=== PATIENT | female | born 1960 | race Caucasian/White ===

== ENCOUNTER → 2016-12-26 | Outpatient (CLI) | payer OTHER ==
[~2016-12-26] MED LIST: CYAN10004 PO; HYDR-4715 PO; LEVO75TA PO; METO50TA7 PO; MULTTAB58 PO; ONDA8TAB62 PO; OPTIRAY 320 IV PRN; TYL325X PO; ZNTT/150 PO
[2016-12-26 16:02] LABS: BLOOD UREA NITROGEN 19 mg/dl (7-18)
--- NOTE | 2016-12-26 16:45 | DIAGNOSTIC IMAGING REPORT ---
CHEST CT WITH CONTRAST CT DOSE: 2209.15 mGy.cm HISTORY: Colon carcinoma CT TECHNIQUE: Multiaxial CT images of the chest were performed following the intravenous administration of contrast. COMPARISON: 12/30/2015 FINDINGS: Central catheter remains in superior vena cava. No significant hilar or mediastinal adenopathy area in several stable basilar calcified granulomas. Stable left basilar fibrocalcific/postoperative change. No new or interval findings. IMPRESSION: Stable evaluation of the chest. No new or interval findings in the prior exam. Electronically signed by: Ashu Bhandari M.D. 12/26/2016 4:44 PM Dictated Date/Time: 12/26/2016 4:41 PM
--- NOTE | 2016-12-26 16:48 | DIAGNOSTIC IMAGING REPORT ---
CT ABD/PELVIS IV AND ORAL CONT CLINICAL HISTORY: Colon carcinoma COMPARISON STUDY: December 30, 2015 TECHNIQUE: Following the IV administration of 120 mL of Optiray-320, CT scan of the abdomen and pelvis was performed from the lung bases to the proximal femurs. Images are reviewed in the axial, sagittal, and coronal planes. IV contrast was administered without complication. CT DOSE: FINDINGS: Lower chest: There is a calcified granuloma within the right lower lobe. There are bilateral lower lobe postsurgical changes. There is also a calcified granuloma within the left lower lobe. There are calcified hilar lymph nodes. Liver: The contrast-enhanced liver is normal in size, contour, and attenuation. There is no intrahepatic biliary ductal dilatation. The hepatic veins and portal veins are patent. Gallbladder: Cholelithiasis Spleen: There is persistent splenomegaly. The spleen measures 13 cm in length. Pancreas: Unremarkable. Adrenal glands: Unremarkable. Kidneys: There is symmetric renal cortical enhancement. The kidneys are normal in size without hydronephrosis. Bowel: There are no transition zones indicate bowel obstruction. There is no evidence of acute appendicitis. There is no evidence of acute diverticulitis. Peritoneum: There is no intraperitoneal free air or abdominal ascites. There is a fat-containing umbilical hernia. There are stable calcified mesenteric nodules, likely benign Vasculature: The abdominal aorta is normal in course and caliber. Adenopathy: None. Pelvic viscera: The bladder, and pelvic viscera are unremarkable. Skeletal structures: No destructive osseous lesions are seen. IMPRESSION: 1. Stable splenomegaly 2. Cholelithiasis 3. No evidence of hepatic metastasis 4. Stable calcified mesenteric nodules, likely benign Electronically signed by: Jaret Grey M.D. 12/26/2016 4:47 PM Dictated Date/Time: 12/26/2016 4:42 PM
== END | disposition home or self-care (01) ==
LOC: C.CTS 14:31
PROVIDERS: ATTEND Nurse Practitioner
DX: C18.7 Malignant neoplasm of sigmoid colon (principal); R16.1 Splenomegaly, not elsewhere classified; K80.20 Calculus of gallbladder without cholecystitis without obstruction

== ENCOUNTER → 2017-03-15 | Outpatient (CLI) | payer OTHER ==
[~2017-03-15] MED LIST changes: -OPTIRAY 320 IV PRN
--- NOTE | 2017-03-15 14:58 | MAMMOGRAPHY REPORT ---
BILATERAL DIGITAL SCREENING MAMMOGRAM TOMOSYNTHESIS WITH CAD: 03/15/2017 CLINICAL HISTORY: Routine screening. Patient has no complaints. TECHNIQUE: Breast tomosynthesis in addition to standard 2D mammography was performed. Current study was also evaluated with a Computer Aided Detection (CAD) system. COMPARISON: Comparison is made to exams dated: 11/15/2015 mammogram, 10/08/2014 mammogram, 3 mammogram, 03/12/2012 mammogram, 01/15/2011 mammogram - [facility], and 07/23/2008. BREAST COMPOSITION: There are scattered areas of fibroglandular density in both breasts. FINDINGS: No suspicious masses, calcifications, or areas of architectural distortion are noted in e ither breast. There has been no significant interval change compared to prior exams. Scattered bilat eral benign-appearing calcifications are not significantly changed. A port catheter overlies the le ft superior breast. IMPRESSION: ACR BI-RADS CATEGORY 2: BENIGN There is no mammographic evidence of malignancy. A 1 year screening mammogram is recommended. The p atient will receive written notification of the results. Approximately 10% of breast cancers are not detected with mammography. A negative mammographic repor t should not delay biopsy if a clinically suggestive mass is present. Carolyn Vu M.D. /:03/15/2017 12:51:10 Ell Tutor: Jena Martin [facility] letter sent: Normal 1/2 BI-RADS Code: ACR BI-RADS Category 2: Benign
== END ==
LOC: C.MAMM 11:06
PROVIDERS: ATTEND Family Medicine
DX: Z12.31 Encounter for screening mammogram for malignant neoplasm of breast (principal)

== ENCOUNTER → 2017-04-08 | Outpatient (CLI) | payer OTHER ==
[2017-04-08 12:31] LABS: HEMATOCRIT 40.9 % (37-47); MEAN CELL VOLUME 93.4 fL (80-100); MEAN CORPUSCULAR HEMOGLOBIN 30.1 pg (25-34); MEAN CORPUSCULAR HGB CONC 32.3 g/dl (32-36); MEAN PLATELET VOLUME 10.8 fL (7.4-10.4); PLATELET COUNT 93 K/uL (130-400); RED BLOOD COUNT 4.38 M/uL (4.2-5.4); WHITE BLOOD COUNT 5.51 K/uL (4.8-10.8)
[2017-04-08 12:46] LABS: ESTIMATED AVERAGE GLUCOSE 137 mg/dl; HA1C FLAG Normal (Normal)
[2017-04-08 13:16] LABS: URINE APPEARANCE CLOUDY (CLEAR); URINE BILIRUBIN NEG (NEG); URINE COLOR DK YELLOW; URINE EPITHELIAL CELL AUTO >30 /lpf (0-5); URINE NITRITE NEG (NEG); URINE SPECIFIC GRAVITY 1.022 (1.000-1.030); UROBILINOGEN NEG (NEG)
[2017-04-08 13:22] LABS: CHOLESTEROL/HDL RATIO 6.4; THYROID STIMULATING HORMONE 1.58 uIu/ml (0.300-4.500)
[2017-04-08 13:27] LABS: BLOOD UREA NITROGEN 19 mg/dl (7-18); BUN/CREATININE RATIO 12.1 (10-20); CARBON DIOXIDE 26 mmol/L (21-32); CHLORIDE 108 mmol/L (98-107); GLUCOSE 115 mg/dl (70-99); PHOSPHORUS 2.7 mg/dl (2.5-4.9); POTASSIUM 4.4 mmol/L (3.5-5.1); SODIUM 142 mmol/L (136-145)
[2017-04-08 13:28] LABS: MANUAL MICROSCOPIC REQUIRED? NO; REVIEW REQ? NO
[2017-04-08 13:39] LABS: URINE PROTIEN/CREAT RATIO 0.1 (0-0.2); URINE TOTAL PROTEIN 20.9 mg/dl (0-11.9)
== END | disposition home or self-care (01) ==
LOC: C.LAB1850 11:21
PROVIDERS: ATTEND Internal Medicine Nephrology
DX: Z11.59 Encounter for screening for other viral diseases (principal); E03.9 Hypothyroidism, unspecified; E78.5 Hyperlipidemia, unspecified; E11.9 Type 2 diabetes mellitus without complications; D64.9 Anemia, unspecified; R60.9 Edema, unspecified; N18.3 Chronic kidney disease, stage 3 (moderate); I10 Essential (primary) hypertension

== ENCOUNTER → 2017-06-24 | Outpatient (CLI) | payer OTHER | END | disposition home or self-care (01) | LOC: C.PAPS 16:39 | PROVIDERS: ATTEND Obstetrics & Gynecology | DX: Z12.4 Encounter for screening for malignant neoplasm of cervix (principal) ==

== ENCOUNTER → 2017-09-10 | Outpatient (CLI) | payer OTHER ==
[2017-09-10 14:09] LABS: ESTIMATED AVERAGE GLUCOSE 151 mg/dl; HA1C FLAG Normal (Normal)
[2017-09-10 14:17] LABS: BLOOD UREA NITROGEN 19 mg/dl (7-18); CREATININE 1.49 mg/dl (0.60-1.20); GLUCOSE 130 mg/dl (70-99)
[2017-09-10 14:18] LABS: ALT/SGPT 31 U/L (12-78); BUN/CREATININE RATIO 12.6 (10-20); CALCIUM 8.8 mg/dl (8.5-10.1); CARBON DIOXIDE 24 mmol/L (21-32); CHLORIDE 109 mmol/L (98-107); CHOLESTEROL 115 mg/dl (0-200); POTASSIUM 4.1 mmol/L (3.5-5.1); SODIUM 140 mmol/L (136-145); TRIGLYCERIDES 208 mg/dl (0-150); VERY LOW DENSITY LIPOPROT CALC 42 mg/dl
[2017-09-10 14:21] LABS: ALB/GLOB RATIO 1.2 (0.9-2); ALKALINE PHOSPHATASE 96 U/L (45-117); AST/SGOT 24 U/L (15-37); HDL CHOLESTEROL 29 mg/dl; LDL CHOLESTEROL CALCULATED 44 mg/dl
== END | disposition home or self-care (01) ==
LOC: C.LABPVFM 09:32
PROVIDERS: ATTEND Family Medicine
DX: R73.01 Impaired fasting glucose (principal); E78.5 Hyperlipidemia, unspecified

== ENCOUNTER → 2017-10-30 | Outpatient (CLI) | payer OTHER ==
[2017-10-30 09:44] LABS: BLOOD UREA NITROGEN 27 mg/dl (7-18); BUN/CREATININE RATIO 15.5 (10-20); CALCIUM 9.6 mg/dl (8.5-10.1); CARBON DIOXIDE 28 mmol/L (21-32); CHLORIDE 104 mmol/L (98-107); CREATININE 1.76 mg/dl (0.60-1.20); GLUCOSE 118 mg/dl (70-99); SODIUM 139 mmol/L (136-145)
[2017-10-30 09:45] LABS: PHOSPHORUS 4.2 mg/dl (2.5-4.9)
== END | disposition home or self-care (01) ==
LOC: C.LAB1850 08:44
PROVIDERS: ATTEND Internal Medicine Nephrology
DX: D64.9 Anemia, unspecified (principal); I12.9 Hypertensive chronic kidney disease with stage 1 through stage 4 chronic kidney disease, or unspecified chronic kidney disease; R60.9 Edema, unspecified; N18.3 Chronic kidney disease, stage 3 (moderate); E55.9 Vitamin D deficiency, unspecified

== ENCOUNTER → 2017-12-10 | Outpatient (CLI) | payer OTHER ==
[2017-12-10 10:11] LABS: ALBUMIN 3.8 gm/dl (3.4-5.0); BLOOD UREA NITROGEN 37 mg/dl (7-18); CALCIUM 9.2 mg/dl (8.5-10.1); CARBON DIOXIDE 25 mmol/L (21-32); CREATININE 1.86 mg/dl (0.60-1.20); GLUCOSE 175 mg/dl (70-99); PHOSPHORUS 2.9 mg/dl (2.5-4.9); POTASSIUM 3.8 mmol/L (3.5-5.1); SODIUM 140 mmol/L (136-145)
== END | disposition home or self-care (01) ==
LOC: C.LAB1850 08:14
PROVIDERS: ATTEND Internal Medicine Nephrology
DX: D64.9 Anemia, unspecified (principal); I10 Essential (primary) hypertension; N18.3 Chronic kidney disease, stage 3 (moderate); E55.9 Vitamin D deficiency, unspecified

== ENCOUNTER → 2018-01-03 | Outpatient (CLI) | payer OTHER ==
[~2018-01-03] MED LIST changes: -METO50TA7 PO; +METO50TA8 PO; +OPTIRAY 320 IV PRN; +RANI150T85 PO; -ZNTT/150 PO
--- NOTE | 2018-01-03 11:31 | DIAGNOSTIC IMAGING REPORT ---
ABD/PELVIS IV AND ORAL CONT CT DOSE: HISTORY: Colon carcinoma SIGMOID COLON CA TECHNIQUE: Multiaxial CT images of the abdomen and pelvis were performed following the use of intravenous and oral contrast. A dose lowering technique was utilized adhering to the principles of ALARA. COMPARISON STUDY: 12/26/2016 FINDINGS: Chronic parenchymal scarring left lung base unchanged. Minimal changes right base also unchanged. Gallstones within a somewhat contracted gallbladder. Liver is uniform. Spleen is enlarged with several calcified granulomas noted. Kidneys enhance uniformly. Pancreas is unremarkable. Bowel pattern within the abdomen and pelvis is nonobstructive. There is no significant abdominal pelvic or inguinal daniel pathology. IMPRESSION: 1. Stable splenomegaly. 2. Gallstones. 3. Stable calcified mesenteric nodules and likely benign. 4. No new interval or progressive process. The above report was generated using voice recognition software. It may contain grammatical, syntax or spelling errors. Electronically signed by: Ashu Bhandari M.D. 01/03/2018 11:30 AM Dictated Date/Time: 01/03/2018 11:26 AM
--- NOTE | 2018-01-03 11:37 | DIAGNOSTIC IMAGING REPORT ---
CHEST CT WITH CONTRAST CT DOSE: 1740.26 mGycm HISTORY: Follow-up study in a patient with history of sigmoid colon carcinoma SIGMOID COLON CA TECHNIQUE: Multiaxial CT images of the chest were performed following the intravenous administration of contrast. A dose lowering technique was utilized adhering to the principles of ALARA. COMPARISON: CT abdomen and pelvis of same day, CT chest 12/26/2016 and 12/30/2015.. FINDINGS: No dominant thyroid nodule identified. No pathologically enlarged lymph nodes by CT size criteria. Calcified bilateral hilar and subcarinal lymph nodes are seen in addition to multiple bilateral calcified granulomas of the lungs. Heart is normal in size without pericardial effusion. The thoracic aorta is normal in both course and caliber without aneurysm or dissection. The left vertebral artery emanates strictly from the aortic arch. The imaged great vessels appear to be patent. The opacified pulmonary arterial tree is unremarkable. There is no pneumothorax or pleural effusion. Postsurgical changes of the bilateral lower lobes redemonstrated with surgical suture material and adjacent subsegmental pleural-parenchymal scarring causing associated architectural distortion and mild traction bronchiectasis. There are no suspicious pulmonary nodules or masses identified. Unchanged 5 mm groundglass nodule of the lingula as seen on image 105 series 4. Mild right hemidiaphragmatic elevation. Central airways are patent. Splenomegaly is again noted measuring up to 16.8 cm in length which appears generally unchanged from comparison. Calcified granulomas throughout the spleen are again noted compatible with prior hematogenous granulomatous disease. Cholelithiasis. There is suggestion of splenic gastric varices. Soft tissues are unremarkable. The bones appear intact without suspicious lytic or blastic bony lesions. IMPRESSION: 1. No acute intrathoracic abnormality identified. No evidence of metastatic disease or new pathologic adenopathy. 2. Prior granulomatous disease. 3. Postsurgical changes with stable pleural-parenchymal scarring within the bilateral lower lobes. 4. Unchanged splenomegaly. 5. Cholelithiasis. Electronically signed by: Bhupendra Devine M.D. 01/03/2018 11:36 AM Dictated Date/Time: 01/03/2018 11:29 AM
== END | disposition home or self-care (01) ==
LOC: C.CTS 10:39
PROVIDERS: ATTEND Nurse Practitioner Family
DX: C18.7 Malignant neoplasm of sigmoid colon (principal); R16.1 Splenomegaly, not elsewhere classified; K80.20 Calculus of gallbladder without cholecystitis without obstruction

== ENCOUNTER → 2018-06-07 | Outpatient (CLI) | payer OTHER ==
[~2018-06-07] MED LIST changes: -OPTIRAY 320 IV PRN
[2018-06-07 10:38] LABS: BLOOD UREA NITROGEN 31 mg/dl (7-18); CALCIUM 8.7 mg/dl (8.5-10.1); CARBON DIOXIDE 27 mmol/L (21-32); CREATININE 1.96 mg/dl (0.60-1.20); GLUCOSE 154 mg/dl (70-99); PHOSPHORUS 3.2 mg/dl (2.5-4.9); POTASSIUM 3.8 mmol/L (3.5-5.1); SODIUM 143 mmol/L (136-145)
[2018-06-07 10:44] LABS: HEMATOCRIT 37.9 % (37-47); HEMOGLOBIN 12.5 g/dL (12.0-16.0); MEAN CORPUSCULAR HEMOGLOBIN 31.3 pg (25-34); MEAN PLATELET VOLUME 11.6 fL (7.4-10.4); PLATELET COUNT 82 K/uL (130-400); RED CELL DISTRIBUTION WIDTH CV 13.5 % (11.5-14.5); RED CELL DISTRIBUTION WIDTH SD 46.6 fL (36.4-46.3); WHITE BLOOD COUNT 5.48 K/uL (4.8-10.8)
== END | disposition home or self-care (01) ==
LOC: C.LAB1850 07:37
PROVIDERS: ATTEND Internal Medicine Nephrology
DX: E55.9 Vitamin D deficiency, unspecified (principal)

== ENCOUNTER 2022-10-22 11:01 | Inpatient (IN) ==
--- NOTE | 2022-10-02 11:10 | PAT Medication Instructions ---
Medication Instructions Date of Service October 02, 2022 Home Medications famotidine 20 mg tablet (Pepcid) 20 mg PO BID multivitamin 1 tab PO QAM cholecalciferol (vitamin D3) 50 mcg (2,000 unit) capsule 50 mcg PO QAM cyanocobalamin (vitamin B-12) 1,000 mcg capsule 1,000 mcg PO QAM vitamin B complex 1 tab PO HS empagliflozin 25 mg tablet (Jardiance) 25 mg PO QAM levothyroxine 75 mcg tablet (Synthroid) 75 mcg PO QAM losartan 100 mg tablet 100 mg PO HS metoprolol succinate 50 mg tablet,extended release 24 hr 50 mg PO QAM simvastatin 20 mg tablet (Zocor) 20 mg PO HS STOP 3 days before surgery empagliflozin 25 mg tablet (Jardiance) 25 mg PO QAM DO NOT take the morning of surgery multivitamin 1 tab PO QAM cholecalciferol (vitamin D3) 50 mcg (2,000 unit) capsule 50 mcg PO QAM cyanocobalamin (vitamin B-12) 1,000 mcg capsule 1,000 mcg PO QAM Take morning of surgery With a small sip of water, OTHERWISE NOTHING TO EAT OR DRINK AFTER MIDNIGHT: famotidine 20 mg tablet (Pepcid) 20 mg PO BID levothyroxine 75 mcg tablet (Synthroid) 75 mcg PO QAM metoprolol succinate 50 mg tablet,extended release 24 hr 50 mg PO QAM Take evening before surgery famotidine 20 mg tablet (Pepcid) 20 mg PO BID vitamin B complex 1 tab PO HS losartan 100 mg tablet 100 mg PO HS simvastatin 20 mg tablet (Zocor) 20 mg PO HS Insulin Dependent Diabetic Patients * Test your blood sugar the morning of surgery * If Blood Sugar is GREATER THAN 150, take HALF of your regular dose of: * If Blood Sugar is LESS THAN 150, DO NOT TAKE ANY: Other Notes If you have any questions please call us at [phone] or [phone] or [phone] or [phone]
--- NOTE | 2022-10-04 09:48 | Anesthesiology Consultation ---
Date of Service October 04, 2022 Assessment & Plan (1) Encounter for pre-operative examination: - Check BSG AM DOS - COVID screening: Per assessment on 10/04: No known COVID-19 positive contacts or current COVID-19 related symptoms. Travel screen negative. Patient vaccinated. Patient was Covid positive 08/31/22 ([place]). Symptoms at time: cold symptoms, fever, fatigue > resolved (did have lingering cough/fatigue but that has since resolved). Pt can proceed as scheduled without additional preop Covid testing or additional Covid contact precautions per protocol pending evaluation AM DOS. - S/P D&C (09/24/22): LMA#4 at [facility]. No issues noted per post-op anesthesia progress note. - Per Luis Fernando at blood bank, pt has history of use of irradiated blood products in 2011. Unclear reason why (? immunocompromised status at that time). He states it is up to provider to decide irradiated vs non-irradiated blood products use if needed for upcoming surgery (to consider parameters for compromised vs non- compromised. Can consult hematology if further advised needed). Reviewed with Dr. Paez. Nothing further from his perspective. Chart Review Chart Review: Acceptable Risk for Surgery and Patient seen in Pre Admission Testing Teaching & Discussion Pre-Anesthesia Teaching/Discussion Notes: Instructed NPO after midnight before surgery,except medications with 15 cc of water. Medication instructions provided according to the PAT guidelines. History Surgery Operation Date: 10/15/22 10:30 Proposed Procedures p Total Abdominal Hysterectomy, Bilateral Salpingo-Oophorectomy - Sagar Rand MD Height/Weight Height: 5 ft 4 in Weight: 97.069 kg Allergies Allergy/AdvReac Type Severity Reaction Status Date / Time Penicillins Allergy Unknown Rash Verified 10/02/22 13:08 Medications Home Medications Medication Instructions Recorded Confirmed Last Taken famotidine 20 mg tablet (Pepcid) 20 mg PO BID 06/10/20 10/02/22 09/24/22 07:30 multivitamin 1 tab PO QAM 01/10/21 10/02/22 09/23/22 08:00 cholecalciferol (vitamin D3) 50 50 mcg PO QAM 07/19/21 10/02/22 09/23/22 08:00 mcg (2,000 unit) capsule cyanocobalamin (vitamin B-12) 1,000 mcg PO QAM 12/15/21 10/02/22 09/23/22 08:00 1,000 mcg capsule vitamin B complex 1 tab PO HS 02/20/22 10/02/22 09/23/22 18:00 empagliflozin 25 mg tablet 25 mg PO QAM 06/21/22 10/02/22 09/21/22 08:00 (Jardiance) levothyroxine 75 mcg tablet 75 mcg PO QAM 09/21/22 10/02/22 09/24/22 07:30 (Synthroid) losartan 100 mg tablet 100 mg PO HS 09/21/22 10/02/22 09/23/22 18:00 metoprolol succinate 50 mg 50 mg PO QAM 09/21/22 10/02/22 09/24/22 07:30 tablet,extended release 24 hr simvastatin 20 mg tablet (Zocor) 20 mg PO HS 09/21/22 10/02/22 09/23/22 18:00 Past Medical History Medical History Clostridium difficile colitis Hx (2013 following chemo) Colon cancer 2008, lung mets resected Endometrioid adenocarcinoma History of blood transfusion 2011 r/t cancer treatment complications per pt History of COVID-19 08/31/22 ([place]) Symptoms at time: cold symptoms, fever, fatigue > resolved except occasional cough/congestion History of infection with vancomycin resistant Enterococcus (VRE) Hx (~2012 following chemo) Hx MRSA infection Hx (~2012 following chemo) Hyperlipidemia Hypertension Hypothyroidism Obesity Post-menopausal bleeding Stage 3 chronic kidney disease Thrombocytopenia Chronic, platelets stable in the 80s per most recent labs 09/12/22 Type 2 diabetes mellitus Exercise / Class Metabolic Activity II 4-5 Yardwork/Stairs/Walk up hill Past Family History Family History Mother Diabetes Heart disease Hypertension Father Heart disease Hypothyroidism Sister Hypertension Hypothyroidism Brother Hypertension Diabetes Past Surgical History Surgical History H/O colonoscopy H/O partial resection of colon for colon cancer History of D&C D&C (09/24/22): LMA#4 at [facility]. No issues noted per post-op anesthesia progress note. History of esophagogastroduodenoscopy (EGD) History of lung surgery VATS for colon cancer metastasis 2008, 2009, 2012 Hx of section Past Anesthesia History No Hx of Anesthesia Complications and No Family Hx of Anesthesia Complications History of PONV No Hx of PONV and Hx of Motion Sickness Social History Smoking Status: Never smoker Do You Dip or Chew Tobacco: No Hx Alcohol Use: Yes Alcohol type: wine alcohol intake frequency: holidays/special occasions only Hx Substance Use: No substance use type: does not use Review of Systems Patient denies chest pain, shortness of breath, dyspnea on exertion, fever, chills, cough, wheezing, palpitations. Physical Exam Vital Signs VITALS BP 180/83 (pt reports systolic typically 130s-140s, pt will monitor home readings and contact PCP of persistently elevated) P 57 TEMP SP02 95%RA RESP 18 PHYSICAL Full cervical extension range of motion. Full TMJ range of motion. TMD 3 finger breaths Mallampati Score 1 Dentition: intact, implant on molar, several crowns Lungs: clear throughout to auscultation Cardiac: regular rate and rhythm, no murmurs noted Spine: normal Carotid arteries: negative bruit Extremities: no edema Lab Results Anesthesia Preop Results Results Anesthesia Widget: WBC 6.45 K/ul (4.8-10.8) 10/04/22 Hgb 12.9 g/dl (12.0-16.0) 10/04/22 Hct 38.2 % (34.1-44.9) 10/04/22 Plt 71 K/uL (130-400) L 10/04/22 Na 140 mmol/L (136-145) 10/01/22 K 4.1 mmol/L (3.5-5.1) 10/01/22 Cl 110 mmol/L (98-107) H 10/01/22 CO2 25 mmol/L (21-32) 10/01/22 BUN 22 mg/dl (6-23) 10/01/22 Creat 1.31 mg/dl (0.6-1.2) H 10/01/22 Glucose Level 118 mg/dl (70-99(Fasting)) H 10/01/22 PT 11.5 Seconds (9.0-12.0) 10/04/22 PTT 26.2 Seconds (21.0-31.0) 10/04/22 INR 1.1 (0.9-1.1) 10/04/22 HA1c 6.4 % (4.5-5.6) H 10/04/22 SARS-CoV-2, RNA, NAAT POSITIVE (NEGATIVE) A* 08/31/22 Blood Type O Positive 10/04/22 Antibody Screen NEGATIVE 10/04/22 Testing Electrocardiogram Date: 09/12/22 Findings: + NSR @ (63) Chest X-Ray Date: 04/04/22 FINDINGS: Frontal and lateral radiographs of the chest demonstrate the cardiomediastinal silhouette to be within normal limits. A Port-A-Cath is in place. Compared to previous examination, stable nodular densities are again seen involving the left lower lobe. No new nodules are identified. No acute alveolar opacities or air bronchograms are seen. There is no evidence for effusion bilaterally. There is no evidence for vascular congestion. There is no acute osseous pathology. IMPRESSION: No acute cardiopulmonary disease. Stable left lower lobe pulmonary nodules are again seen. COVID-19 Risk Screen Screening Information COVID-19 Screen Date: 10/04/22 Exposure 21 Days Family/Household +COVID Last 21 Days: No Exposure 10 Days Any COVID Exposure Last 10 Days: No Symptoms Last 10 Days Experienced COVID Sx Last 10 Days: Yes + COVID 0-90 Days COVID + in Last 0-90 Days: Yes + COVID Test 0-10 Day: No + COVID Test 11-90 Day: Yes
[~2022-10-22 11:01] MED LIST changes: +ALLERGY Noted to ORDERED Medication SCH; -CYAN10004 PO; -HYDR-4715 PO; -LEVO75TA PO; +LR 15ML/HR IV SCH; -METO50TA8 PO; +MIDAZOLAM HCL 1 MG/ML 2ML VIAL ONE; -MULTTAB58 PO; -ONDA8TAB62 PO; -RANI150T85 PO; +SUGAMMADEX SODIUM 200 MG/2 ML VIAL IV ONE; -TYL325X PO; +cefOXitin 2,000 MG in DEXTROSE 5% 50 ML IV SCH; +fentaNYL citrate 100 MCG/2 ML VIAL ONE
--- NOTE | 2022-10-22 12:21 | History & Physical Bridge Note ---
Date of Service October 22, 2022 History & Physical Bridge Note I have examined the patient, reviewed the History & Physical and in the interval since the performance of the History & Physical I have noted the following changes of clinical significance: no changes noted
[2022-10-22] MEDS ORDERED: Nursing to Pharmacy Communication SCH (12:30)
[2022-10-22] MEDS ORDERED: HEPARIN (PORCINE) 1000 UNIT/ML 10 ML (CATH LAB USE ONLY) ONE (13:27)
[2022-10-22] MEDS ORDERED: MIDAZOLAM HCL 1 MG/ML 2ML VIAL ONE (13:35)
[2022-10-22] MEDS ORDERED: ROCURONIUM BROMIDE 10 MG/ML 5 ML VIAL IV ONE ×8 (13:35→16:18)
[2022-10-22] MEDS ORDERED: fentaNYL citrate 100 MCG/2 ML VIAL ONE ×3 (13:35→17:02)
[2022-10-22] MEDS ORDERED: LIDOCAINE 2% MPF LOCAL 5 ML VIAL INFIL ONE ×3 (13:35→16:19)
[2022-10-22] MEDS ORDERED: MoRPHine SULFATE PF 1 MG/ML 10 ML AMP/VIAL ONE (13:35)
[2022-10-22] MEDS ORDERED: ATROPINE SULFATE 0.1 MG/ML 10ML SYR IV PRN (13:40)
[2022-10-22] MEDS ORDERED: ONDANSETRON INJ 2 MG/ML 2 ML VIAL IV PRN (13:40)
[2022-10-22] MEDS ORDERED: fentaNYL citrate 100 MCG/2 ML VIAL IV PRN (13:40)
[2022-10-22] MEDS ORDERED: ePHEDrine sulfate 50 MG/ML AMP IV PRN ×2 (13:40→14:15)
[2022-10-22] MEDS ORDERED: PROMETHAZINE HCL 6.25 MG in SODIUM CHLORIDE 0.9% 50 ML IV PRN (13:40)
[2022-10-22] MEDS ORDERED: NO NARCOTICS OR SEDATIVES SCH (14:15)
[2022-10-22] MEDS ORDERED: SODIUM CHLORIDE 0.9% 1000ML 1,000 ML IV SCH (14:15)
[2022-10-22] MEDS ORDERED: DC INTRASPINAL MORPHINE SCH (14:15)
[2022-10-22] MEDS ORDERED: NALOXONE HCL 0.08 MG in SYRINGE 1.8 ML IV PRN (14:15)
[2022-10-22] MEDS ORDERED: NALBUPHINE HCL INJ 10 MG/ML AMP IV PRN (14:15)
[2022-10-22] MEDS ORDERED: NALOXONE HCL 1 MG in SODIUM CHLORIDE 0.9% 1000ML 1,000 ML IV PRN (14:15)
[2022-10-22] MEDS ORDERED: MoRPHine SULFATE PF 1 MG/ML 10 ML AMP/VIAL INT SPINAL ONE (14:15)
[2022-10-22] MEDS ORDERED: HYDROmorphone INJ 0.5 MG/0.5 ML SYR IV PRN (14:15)
[2022-10-22] MEDS ORDERED: diphenhydrAMINE 50 MG/ML VIAL IV PRN (14:15)
[2022-10-22] MEDS ORDERED: MEPERIDINE HCL 25 MG/ML CARP/VIAL IV PRN (14:15)
[2022-10-22] MEDS ORDERED: LACTATED RINGER'S 500 ML IV PRN (14:15)
[2022-10-22] MEDS ORDERED: MoRPHine SULFATE 2 MG/ML CARP IV PRN (14:15)
[2022-10-22] MEDS ORDERED: NALOXONE HCL 0.4 MG/1 ML VIAL/CARP IV PRN (14:15)
[2022-10-22] MEDS ORDERED: SUGAMMADEX SODIUM 200 MG/2 ML VIAL IV ONE (14:36)
[2022-10-22] MEDS ORDERED: PROPOFOL IV EMULSION 10 MG/ML 20 ML VIAL IV ONE (14:38)
[2022-10-22] MEDS ORDERED: DEXAMETHASONE SOD INJ 4 MG/ML VIAL ONE (14:39)
[2022-10-22] MEDS ORDERED: ONDANSETRON INJ 2 MG/ML 2 ML VIAL ONE (14:39)
[2022-10-22] MEDS ORDERED: PHENYLEPHRINE 100MCG/ML 5ML SYR ONE (14:57)
[2022-10-22] MEDS ORDERED: GLYCOPYRROLATE 0.2 MG/ML VIAL ONE (14:57)
[2022-10-22] MEDS ORDERED: ePHEDrine sulfate 50 MG/ML SYR ONE (14:57)
[2022-10-22] MEDS ORDERED: PHENYLEPHRINE HCL 10 MG/ML VIAL ONE (16:23)
[2022-10-22] MEDS ORDERED: GELATIN SPONGE SZ 100 ONE (16:33)
--- NOTE | 2022-10-22 17:50 | Post Operative Brief Note ---
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 Smith Estimated Blood Loss 700 Findings See Below dense adhesions endometriosis Drains Larry Drain ([id number]) and Helton Catheter Anesthesia Type General Complications none
[2022-10-22 18:09] LABS: iSTAT Creatinine 1.2 mg/dl (0.6-1.3); iSTAT Hemoglobin 10.5 g/dl (12.0-16.0); iSTAT Ionized Calcium 1.16 mmol/l (1.12-1.32); iSTAT Potassium 3.7 mmol/L (3.3-5.0)
[2022-10-22 18:15] LABS: Hematocrit (blood only) 32.2 % (34.1-44.9); Hemoglobin 10.9 g/dl (12.0-16.0)
--- NOTE | 2022-10-22 18:45 | Anesthesiology Progress Note ---
Date of Service October 22, 2022 Anesthesia Post Procedure Vital Signs Vital Signs: Temp Pulse Pulse Resp BP Pulse Ox O2 Del Method 10/22/22 18:05 80 13 120/59 L 100 Oxymask 10/22/22 18:25 36.4 C L 79 14 129/68 100 Room Air 10/22/22 18:15 36.4 C L 76 12 127/70 100 Oxymask 10/22/22 17:55 65 14 102/53 L 100 Oxymask 10/22/22 17:47 36.2 C L 65 14 104/57 L 96 Oxymask 10/22/22 11:22 36.9 C 66 18 165/92 H 98 Room Air O2 Flow Rate 10/22/22 18:05 5 10/22/22 18:25 10/22/22 18:15 3 10/22/22 17:55 7 10/22/22 17:47 9 10/22/22 11:22 Transfer of Care Handoff Completed per policy Notes Mental Status: alert / awake / arousable and participated in evaluation Patient Amnestic to Procedure: Yes Nausea / Vomiting: adequately controlled Pain: adequately controlled Airway Patency, RR, SpO2: stable & adequate BP & HR: stable & adequate Hydration State: stable & adequate Anesthetic Complications: no major complications apparent and Pt Satisfied with anesthetic care
[2022-10-22] MEDS ORDERED: SENNA 8.6 MG TAB PO PRN (18:53)
[2022-10-22] MEDS ORDERED: bisacodyL 10 MG SUPP PR PRN (18:53)
[2022-10-22] MEDS ORDERED: MAGNESIUM HYDROXIDE SUSP 30 ML UDC PO PRN (18:53)
[2022-10-22] MEDS ORDERED: D5W AND LACTATED RINGERS 1,000 ML IV SCH (18:53)
[2022-10-22] MEDS: cefOXitin 2,000 MG in DEXTROSE 5% 50 ML IV SCH (19:35)
[2022-10-22] MEDS: KETOROLAC 30 MG/ML VIAL IV PRN (19:35)
[2022-10-22] MEDS: LACTATED RINGER'S 1,000 ML IV SCH (20:20)
[2022-10-22 21:44] LABS: Hematocrit (blood only) 31.8 % (34.1-44.9); Hemoglobin 10.6 g/dl (12.0-16.0)
--- NOTE | 2022-10-22 23:52 | Operative Report (OR) ---
DATE OF SERVICE: 10/22/2022 INDICATIONS FOR SURGERY: Low-grade endometrial cancer on previous D and C. PREOPERATIVE DIAGNOSES: Endometrial cancer, status post partial colon resection for colon cancer. POSTOPERATIVE DIAGNOSES: Endometrial cancer, status post partial colon resection for colon cancer, e ndometriosis, dense adhesions. SURGEON: Gera Rand MD. HYDRAULICS TEACHER: Nicolás Smith MD. ESTIMATED BLOOD LOSS: 700 mL. ANESTHESIA: General with spinal narcotics. OPERATIVE FINDING AND PROCEDURE: The patient was brought to the OR table, correctly identified by thea jang and conversation. Spinal narcotics was administered and general anesthesia was administered. Vagina was prepped with Betadine solution. Lower abdomen was painted with an alcohol based sterilizi ng solution and draped in the usual sterile fashion. The abdomen was entered by excising her previou s midline abdominal scar. The scar went up around the umbilicus, but we stayed below the umbilicus. After excising the scar, we cut down through the anterior fascia by sharp dissection. Hemostasis wa s secured by electrocauterization. Peritoneum was raised and entered. I took the peritoneal fluid and sent it for cytology. Then, I en tered the abdomen, we had some trouble with omental adhesions to the undersurface of the anterior abd ominal scar, especially in the area by the umbilicus. This had to be clamped and cut several times d ue to bleeding. We then used a Bookwalter retractor to provide adequate exposure of the pelvic cavit y. There was a lot of dense adhesions and also obvious endometriosis. We freed up the left adnexa, entered the peritoneum on the lateral pelvic wall. Identified the vessels to the ovary and then doub ly ligated them with a silk suture and then cut the blood flow to the ovaries. We then did the same on the right side, the adhesions were not as dense. At that time, we did enter t he peritoneum and then identified the vessels and ligated them with a suture. We then identified the round ligaments, ligated them posteriorly with a transfixion suture of chromic catgut, and then clos er to the pelvic wall, we used a free tie of silk. We then cut the round ligaments and punched throu gh the posterior leaf of the broad ligaments on either side after cutting above the vesicouterine fol d and advancing the bladder out of the operative field. We skeletonized the uterine vessels on either side, doubly ligated them with a chromic gut suture aft er clamping them with a curved Ralph cutting with a stump and then tying. We actually had to develo p the cul-de-sac, a lot of the cul-de-sac had been obliterated through endometriosis and adhesions, b ut we were able to get down below the attachment of the uterosacral ligaments on the cervix on both s ides. We then hugged the cervix, clamped the cardinal ligaments on both sides in 3 steps because of the length of the cardinal ligaments, cut with a stump and ligated with a chromic gut suture. We the n shelled the cervix out using electrocauterization and entering posteriorly, went around the vaginal cuff, thus excised the surgical specimen consisting of uterus, cervix, both tubes and ovaries. We grabbed the angles of the vaginal cuff with straight Ralph and then we ligated and tied the angle s of the vaginal cuff to the stumps of the cardinal ligaments by going into and out of the vaginal cu ff, then back around and then tying it to the stumps of the cardinal ligaments. This was done for ehsan th the right and left side. We then approximated the angles of the vaginal cuff using a [id number] ght suture starting by anchoring it into the stumps of the cardinal ligament, going through the vagin a, going towards the middle of the cuff and coming back, and then coming back to the stumps of the ca rdinals on each side, thus further attaching the angles of the vaginal cuff to the stumps of the card inal ligament. I then whipstitched open the midportion of the vagina with a continuous interlocking suture of heavy chromic. After that, we dissected off the colon. We made sure that everything was free, a lot of th e anatomy had been obliterated by both endometriosis and previous surgery. We identified the right u reter, made sure it was free. We made sure that the colon anastomosis was not injured at all by the c ervix, and while we were in the pelvis, we also took out some pelvic nodes on both the right and left sides. We then had to use some Surgicel and foam to pack the pelvis. We sent the surgical specimen off for frozen. The frozen report was a low-grade endometrial cancer, less than 50% into the myomet rium. We then after taking some pelvic nodes out identifying the ureters, identifying the colon and make spear re there were no injuries while we placed a drain into the vaginal cuff into the cul-de-sac and also there was abdominal drain coming out through the left side of the incision. We checked hemoglobin at this time. Estimated blood loss was 700 mL, hemoglobin was 10.5. We approximated the fascia with a continuous PDS, one anchored at the top of the defect and the other anchored at the bottom of the defect and run from the top to the middle and from the bottom to the m iddle. We cleansed the incision out with saline, used a continuous plain tie to approximate the subQ . Used several mattress sutures of nylon and then rest of the approximation was done with staple cli ps. The patient tolerated the procedure well. Job ID: [id number]
[2022-10-23] MEDS: cefOXitin 2,000 MG in DEXTROSE 5% 50 ML IV SCH ×5 (02:57→20:53)
[2022-10-23] MEDS: KETOROLAC 30 MG/ML VIAL IV PRN (02:57)
[2022-10-23] MEDS: LACTATED RINGER'S 1,000 ML IV SCH (04:57)
[2022-10-23] MEDS ORDERED: LR 15ML/HR IV SCH (06:00)
[2022-10-23 07:27] LABS: Hematocrit (blood only) 28.5 % (34.1-44.9); Hemoglobin 9.4 g/dl (12.0-16.0); White Blood Count 9.83 K/ul (4.8-10.8)
[2022-10-23 07:42] LABS: Basophils # (auto) 0.03 K/uL (0-0.2); Basophils % (auto) 0.3 %; Immature Granulocytes # (auto) 0.04 K/uL (0.00-0.02); Immature Granulocytes % (auto) 0.4 %; Lymphocytes # (auto) 0.93 K/uL (1.2-3.4); Lymphocytes % (auto) 9.5 %; Mean Corpuscular Hemoglobin 33.9 pg (25.0-34.0); Mean Corpuscular Volume 102.9 fL (80.0-100.0); Mean Platelet Volume 10.6 fL (9.4-12.3); Monocytes # (auto) 1.03 K/uL (0.24-0.82); Monocytes % (auto) 10.5 %; Neutrophils % (auto) 79.3 %; Platelet Count 80 K/uL (130-400); Platelet Estimate Decreased (Normal); RDW Coefficient of Variation 15.4 % (11.5-14.5); RDW Standard Deviation 58.7 fL (36.4-46.3); Red Blood Count 2.77 M/uL (3.93-5.22); Tear Drop Cells 1+
[2022-10-23] MEDS ORDERED: MEPERIDINE HCL 50 MG/ML CARP IV PRN (08:16)
[2022-10-23] MEDS ORDERED: KETOROLAC 30 MG/ML VIAL IV PRN (08:16)
[2022-10-23] MEDS ORDERED: ONDANSETRON INJ 2 MG/ML 2 ML VIAL IV PRN (08:16)
[2022-10-23] MEDS ORDERED: oxyCODONE/ACETAMINOPHEN 5mg/325mg TAB PO PRN (08:16)
--- NOTE | 2022-10-23 08:22 | Obstetrical Progress Note ---
Date of Service October 23, 2022 Assessment & Plan Admission and Anticipated Discharge Date Admission Date: October 22, 2022 Subjective abdomen soft and non tender bandage is clean and dry no calf tenderness bowel sounds hypoactive vaginal bleeding scant hgb 9.4 urine output good Results & Data ([facility]) Vital Signs (Past 12 Hours) Vital Signs Temp Pulse Resp BP Pulse Ox O2 Del Method O2 Flow Rate 10/23/22 06:00 18 95 10/23/22 07:00 18 97 10/23/22 04:00 18 97 10/23/22 04:50 36.2 C L 64 18 116/73 98 Nasal Cannula 10/23/22 05:00 18 98 10/23/22 02:00 16 98 10/23/22 01:00 16 97 10/22/22 23:00 16 98 10/23/22 03:00 16 98 10/23/22 00:00 18 97 10/22/22 23:35 36.5 C 67 18 120/73 100 Nasal Cannula 2 10/22/22 22:00 18 99 10/22/22 21:00 16 98
[2022-10-23] MEDS: IBUPROFEN 600 MG TAB PO PRN ×2 (14:47→20:54)
[2022-10-23] MEDS: oxyCODONE/ACETAMINOPHEN 5mg/325mg TAB PO PRN ×2 (14:47→20:53)
[2022-10-24 07:00] LABS: Hematocrit (blood only) 27.8 % (34.1-44.9); Hemoglobin 9.3 g/dl (12.0-16.0); White Blood Count 9.57 K/ul (4.8-10.8)
[2022-10-24] MEDS: oxyCODONE/ACETAMINOPHEN 5mg/325mg TAB PO PRN ×2 (07:28→14:49)
[2022-10-24] MEDS: IBUPROFEN 600 MG TAB PO PRN ×3 (07:28→23:19)
[2022-10-24 07:42] LABS: Basophils # (auto) 0.03 K/uL (0-0.2); Basophils % (auto) 0.3 %; Immature Granulocytes # (auto) 0.07 K/uL (0.00-0.02); Immature Granulocytes % (auto) 0.7 %; Lymphocytes # (auto) 1.19 K/uL (1.2-3.4); Lymphocytes % (auto) 12.4 %; Mean Corpuscular Hemoglobin 33.8 pg (25.0-34.0); Mean Corpuscular Hgb Conc 33.5 g/dL (32.0-36.0); Mean Corpuscular Volume 101.1 fL (80.0-100.0); Mean Platelet Volume 11.2 fL (9.4-12.3); Monocytes # (auto) 1.03 K/uL (0.24-0.82); Monocytes % (auto) 10.8 %; Neutrophils # (auto) 7.15 K/uL (1.4-6.5); Neutrophils % (auto) 74.8 %; Platelet Count 75 K/uL (130-400); Polychromasia 1+; RDW Coefficient of Variation 15.4 % (11.5-14.5); RDW Standard Deviation 57.6 fL (36.4-46.3); Red Blood Count 2.75 M/uL (3.93-5.22); Tear Drop Cells 1+
--- NOTE | 2022-10-24 09:59 | Obstetrical Progress Note ---
Date of Service October 24, 2022 Assessment & Plan Admission and Anticipated Discharge Date Admission Date: October 22, 2022 Subjective abdomen soft and non tender bowel sounds present passing flatus drainage from abdomen is decreasing sonny drain removed from the vagina vaginal bleeding scant hgb 9.3 will advance diet Results & Data ([facility]) Vital Signs (Past 12 Hours) Vital Signs Temp Pulse Resp BP Pulse Ox O2 Del Method 10/24/22 07:25 36.5 C 55 L 18 154/71 H 100 Room Air 10/24/22 00:20 36.8 C 60 18 148/75 H
[2022-10-25] MEDS: IBUPROFEN 600 MG TAB PO PRN ×2 (07:19→12:25)
[2022-10-25 09:27] LABS: BUN Creatinine Ratio 22.2 (10-20); Est GFR (African American) 49.3 ml/min; Est GFR (Non-African American) 42.6 ml/min; Potassium 3.7 mmol/L (3.5-5.1)
--- NOTE | 2022-10-25 12:17 | Obstetrical Progress Note ---
Date of Service October 25, 2022 Assessment & Plan Admission and Anticipated Discharge Date Admission Date: October 22, 2022 Subjective abdomen soft and non tender incision is clean and dry vaginal discharge scant abdominal drain removed no calf tenderness ambulating well patient has had a bowel movement hgb 9.3 Results & Data ([facility]) Vital Signs (Past 12 Hours) Vital Signs Temp Pulse Resp BP 10/25/22 07:30 36.8 C 74 20 155/78 H
--- NOTE | 2022-10-25 22:08 | Discharge Summary (DS) ---
HOSPITAL COURSE: This patient is admitted with an endometrial adenocarcinoma of the uterus, grade 1. She is a 62-year-old 1, para 1, treated for colon cancer in 2009. She has had chemotherapy, several surgeries since then. She underwent several lung resections for colon metastasis, where she has been cancer free for the last several years. She was seen in our office, had several episodes of postmenopausal bleeding, periods having stopped at age 52. Transvaginal ultrasound showed endometrial stripe of 1.5 cm. Subsequently, had a D and C, which showed one focus of adenocarcinoma of the endometrium, grade 1. She was admitted for total abdominal hysterectomy, bilateral salpingo- oophorectomy, and sampling of pelvic nodes. On the day of admission, she was given prophylactic antibiotics, taken to the OR. Previous incisional scar was excised. We went in through a previous midline incision. There were a lot of omental adhesions to the anterior abdominal wall. Dissection was difficult. Some of the pelvic planes had been obliterated due to scarring. Eventually, we freed up the uterus. We used a Bookwalter retractor and did a total abdominal hysterectomy and bilateral salpingo-oophorectomy and left a small portion of the cuff open. At that time, we did also dissect out some pelvic nodes. We had to free up the colon and make sure there were no injuries to the bowel. Blood loss at the time of surgery was estimated to be about 700 mL. We placed a Miguel drain into the vaginal cuff as I usually do for the hysterectomies. We also placed an abdominal drain and some Surgicel packing. Postoperatively, we had dealt with ileus. She remained afebrile throughout her entire postoperative course, but did have some problem with nausea and vomiting. Eventually on the second postoperative day, we pulled out the vaginal drain. She started to pass gas. By the time of discharge, she had had a bowel movement and the abdominal drainage was just a serosanguineous peritoneal fluid like drainage, less than 150 mL. I discussed pulling the abdominal drain with the general surgeon, we agreed, pulled the abdominal drain, changed the bandage. The incision looked good and dry, and she was discharged to be followed in home and office. She was to call if she had a temperature over 100, call if she had any heavy bleeding, and return to the office for removal of elliott. At the time of this dictation, the pathology report is not back. Job ID: [id number] [facility]
== END 2022-10-25 13:12 | disposition home or self-care (01) | DRG 741 ==
LOC: ASU 11:01 → 4E2 18:02

== ENCOUNTER 2023-10-09 05:57 | Observation (INO) ==
[2023-10-09] MEDS ORDERED: ONDANSETRON INJ 2 MG/ML 2 ML VIAL ONE ×2 (06:39→06:52)
[2023-10-09] MEDS ORDERED: fentaNYL citrate PF 100 MCG/2 ML VIAL ONE ×3 (06:39→10:26)
[2023-10-09] MEDS ORDERED: ROCURONIUM BROMIDE 10 MG/ML 5 ML VIAL IV ONE ×2 (06:39→06:52)
[2023-10-09] MEDS ORDERED: MIDAZOLAM HCL 1 MG/ML 2ML VIAL ONE ×2 (06:39→06:52)
[2023-10-09] MEDS ORDERED: PROPOFOL IV EMULSION 10 MG/ML 20 ML VIAL IV ONE ×2 (06:39→06:52)
[2023-10-09] MEDS ORDERED: LIDOCAINE 2% 2 ML VIAL/AMP(20MG/ML) INFIL ONE (06:39)
[2023-10-09] MEDS ORDERED: LACTATED RINGER'S 1,000 ML IV SCH (06:45)
[2023-10-09] MEDS ORDERED: BUPIVACAINE 0.5 % 5 MG/1 ML MPF 30ML VIAL ONE (06:49)
[2023-10-09] MEDS ORDERED: LIDOCAINE 2% LOCAL 50 ML VIAL ONE (06:49)
[2023-10-09] MEDS ORDERED: LIDOCAINE 1% LOCAL 20 ML VIAL ONE (06:51)
[2023-10-09] MEDS ORDERED: SUGAMMADEX SODIUM 200 MG/2 ML VIAL IV ONE ×2 (06:52→10:23)
[2023-10-09] MEDS ORDERED: DEXAMETHASONE SOD INJ 4 MG/ML VIAL ONE (06:52)
--- NOTE | 2023-10-09 07:12 | History & Physical Bridge Note ---
Date of Service October 09, 2023 History & Physical Bridge Note I have examined the patient, reviewed the History & Physical and in the interval since the performance of the History & Physical I have noted the following changes of clinical significance: no changes noted minimal serous drainage for abd wall pt marked all question answered
--- NOTE | 2023-10-09 07:17 | Anesthesiology Consultation ---
Date of Service October 09, 2023 Assessment & Plan Chart Review Chart Review: Acceptable Risk for Surgery and Patient NOT seen in Pre Admission Testing Consults Requested none ASA ASA3 Proposed Anesthesia Anesthesia Type: General Risk / Benefits Reviewed With: PT / POA / Parent / Guardian, Accepts Plan and Informed Consent Obtained History Surgery Operation Date: 10/09/23 07:30 Proposed Procedures p Open Repair of an Incarcerated Incisional Hernia, Possible Mesh - Nicolás Smith MD, FACS Height/Weight Height: 5 ft 4 in Weight: 92.8 kg Allergies Allergy/AdvReac Type Severity Reaction Status Date / Time Penicillins Allergy Unknown Rash Verified 10/09/23 06:25 Medications Home Medications Medication Instructions Recorded Confirmed Last Taken famotidine 20 mg tablet (Pepcid) 20 mg PO BID 06/10/20 10/09/23 10/09/23 05:00 multivitamin 1 tab PO QAM 01/10/21 10/09/23 10/08/23 08:00 cholecalciferol (vitamin D3) 50 50 mcg PO QAM 07/19/21 10/09/23 10/08/23 08:00 mcg (2,000 unit) capsule cyanocobalamin (vitamin B-12) 1,000 mcg PO QAM 12/15/21 10/09/23 10/09/23 05:00 1,000 mcg capsule vitamin B complex 1 tab PO HS 02/20/22 10/09/23 10/08/23 22:00 losartan 100 mg tablet 100 mg PO HS #90 tabs 04/09/23 10/09/23 10/08/23 22:00 simvastatin 20 mg tablet (Zocor) 20 mg PO HS #90 tabs 07/01/23 10/09/23 10/08/23 22:00 empagliflozin 25 mg tablet 25 mg PO QAM 09/17/23 10/09/23 10/08/23 08:00 (Jardiance) levothyroxine 75 mcg tablet 75 mcg PO QAM 09/17/23 10/09/23 10/09/23 05:00 (Synthroid) metoprolol succinate 50 mg 50 mg PO QAM 09/17/23 10/09/23 10/09/23 05:00 tablet,extended release 24 hr cephalexin 500 mg capsule 500 mg PO TID 10 days #30 caps 10/06/23 10/09/23 10/08/23 22:00 Active Medications Generic Name Dose Route Start Last Admin Trade Name Alden PRN Reason Stop Dose Admin Lactated Ringer's 1,000 mls @ 0 mls/hr 10/09/23 06:45 10/09/23 06:57 Lr IV 10/09/23 18:00 30 mls/hr .Q0M BRENT Administration KVO NPO Date Last Intake of Fluids: 10/08/23 Time Last Intake of Fluids: 22:00 Date Last Intake of Solids: 10/08/23 Time Last Intake of Solids: 22:00 Past Medical History Medical History History of COVID-19 2020. Incisional hernia History of endometrial cancer s/p hysterectomy 2021 History of colon cancer 2008, lung mets resected Right knee DJD Left knee DJD Thrombocytopenia Obesity (BMI 30-39.9) Mixed hyperlipidemia Metabolic syndrome Hyperlipidemia Hypertension Hypothyroidism Stage 3 chronic kidney disease Type 2 diabetes mellitus Vitamin D deficiency hx Exercise / Class Metabolic Activity II 4-5 Yardwork/Stairs/Walk up hill Past Family History Family History Mother Diabetes Heart disease Hypertension Father Heart disease Hypothyroidism Diabetes Hypertension Sister Hypertension Hypothyroidism Brother Hypertension Diabetes Grandmother (Maternal) Breast cancer Cancer Aunt Cancer Uncle Cancer Past Surgical History Surgical History History of total abdominal hysterectomy and bilateral salpingo-oophorectomy (10/2022) History of D&C D&C (09/24/22): LMA#4 at [facility]. No issues noted per post-op anesthesia progress note. Hx of section History of esophagogastroduodenoscopy (EGD) H/O colonoscopy History of lung surgery VATS for colon cancer metastasis 2008, 2009, 2012 H/O partial resection of colon for colon cancer Past Anesthesia History No Hx of Anesthesia Complications and No Family Hx of Anesthesia Complications History of PONV No Hx of PONV and No Hx of Motion Sickness Social History Smoking Status: Never smoker Do You Dip or Chew Tobacco: No Hx Alcohol Use: Yes Alcohol type: wine alcohol intake frequency: holidays/special occasions only Hx Substance Use: No substance use type: does not use Physical Exam Vital Signs Last Vital Signs Temp 36.7 C 10/09/23 06:29 Pulse 71 10/09/23 06:29 Resp 20 10/09/23 06:29 BP 169/92 H 10/09/23 06:29 Pulse Ox 97 10/09/23 06:29 O2 Del Method Room Air 10/09/23 06:29 Constitutional + obese; no acute distress ENMT Mouth: no dentition abnormality Thyromental Distance: < 3.5 Finger Breadths Mallampati Class: II Neck normal visual inspection and trachea midline; neck extension not limited Respiratory normal respiratory effort Auscultation: lungs clear to auscultation bilaterally Cardiovascular Rate/Rhythm: regular rate and regular rhythm Heart Sounds: no murmur Vessels: no carotid bruit Chest (Breasts) Chest: + vascular access device or port Musculoskeletal Spine: normal cervical ROM and no pain with cervical ROM Extremities: extremities normal to inspection; full ROM of extremities Neurologic moves all extremities Motor/Sensory: no sensory deficit Psychiatric Orientation: alert and oriented x 3 Testing Laboratory Results 10/09/23 06:22 POC Glucose 139 H Electrocardiogram Date: 09/12/22 Findings: + NSR @ (@ 63) Echocardiogram Date: 04/19/23 EF: 55% LV Function: normal RWMA: + none Other Findings: + LVH (mild) and + diastolic dysfunction (Grade 1) Valvular Disease: + no significant valvular disease and + MR (mild)
[2023-10-09] MEDS ORDERED: ceFAZolin 330 MG/ML 1 GM VIAL ONE (07:33)
[2023-10-09] MEDS ORDERED: SUCCINYLCHOLINE 100MG/5ML SYR IV ONE (07:38)
[2023-10-09] MEDS ORDERED: GLYCOPYRROLATE 0.2 MG/ML VIAL ONE (07:43)
[2023-10-09] MEDS ORDERED: PHENYLEPHRINE 100MCG/ML 10ML SYR IV ONE (07:59)
[2023-10-09] MEDS ORDERED: ceFAZolin 2000MG 2,000 MG/15 ML SYR IV ONE (08:00)
[2023-10-09] MEDS ORDERED: PHENYLEPHRINE HCL 10 MG/ML VIAL ONE (08:28)
[2023-10-09] MEDS ORDERED: FLUMAZENIL 0.1 MG/1 ML 10 ML VIAL IV PRN (08:54)
[2023-10-09] MEDS ORDERED: NALOXONE HCL 0.4 MG/1 ML VIAL/CARP IV PRN (08:54)
[2023-10-09] MEDS ORDERED: LABETALOL HCL IV 5 MG/ML 20ML IV PRN (08:54)
[2023-10-09] MEDS ORDERED: ATROPINE SULFATE 0.1 MG/ML 10ML SYR IV PRN (08:54)
[2023-10-09] MEDS ORDERED: ePHEDrine sulfate 50 MG/ML AMP IV PRN (08:54)
[2023-10-09] MEDS ORDERED: HYDROmorphone INJ 1 MG/ML SYRINGE IV PRN (08:54)
[2023-10-09] MEDS ORDERED: ONDANSETRON INJ 2 MG/ML 2 ML VIAL IV PRN ×2 (08:54→11:53)
[2023-10-09] MEDS ORDERED: PROMETHAZINE HCL 12.5 MG in SODIUM CHLORIDE 0.9% 50 ML IV PRN (08:54)
--- NOTE | 2023-10-09 10:24 | Post Operative Brief Note ---
Immediate Post Op Note v1 Date of Surgery October 09, 2023 Pre & Post Diagnosis Operation Date: 10/09/23 07:30 Pre-Op Diagnosis: Incarcerated Incisional Hernia Post-Op Diagnosis: Incarcerated Incisional Hernia I identified the patient and participated in the time-out.: Yes Procedure Operation Date: 10/09/23 07:30 Actual Procedures p Open Repair of an Incarcerated Incisional Hernia, with Mesh(Not Applicable) - Nicolás Smith MD, FACS Surgeon Nicolás Smith MD, FACS Wagon Driver Hilda Estimated Blood Loss 100 Findings Consistent with Post-Op Diagnosis Drains Larry Drain (19 fr) and Helton Catheter (inserted after induction of anesthesia by Tea Cohen RN without difficulty. Removed at end of procedure)
[2023-10-09] MEDS: fentaNYL citrate PF 100 MCG/2 ML VIAL IV PRN ×2 (10:42→11:30)
--- NOTE | 2023-10-09 10:53 | Operative Report ---
PG Post Operative Report Pre & Post Diagnosis Operation Date: 10/09/23 07:30 Pre-Op Diagnosis: Incarcerated Incisional Hernia Post-Op Diagnosis: Incarcerated Incisional Hernia I identified the patient and participated in the time-out.: Yes Procedure Operation Date: 10/09/23 07:30 Actual Procedures p Open Repair of an Incarcerated Incisional Hernia with Compartment Seperation, with Vicryl Mesh [place]lay(Not Applicable) - Nicolás Smith MD, FACS Indication for surgery large incisional hernia with very thinned skin overlying it we had planned to repaired electively once to superficial pressure ulcers on the thinned out skin would heal but unfortunately the patient ended up to the emergency room approximately 3 days ago with spontaneously draining approximately 1500 cc of serous fluid and we started the office yesterday afternoon has a follow-up where the skin overlying the area was free of any gross infection the patient had a ostomy bag over what had minimal drainage and we elected to proceed with surgery today patient on the last image by CAT scan showed that she had developed cirrhosis but at the time of surgery there was no gross evidence of significant dilated periumbilical vein and 1 would see with portal hypertension The patient was brought into the operating theater supine position general endotracheal anesthesia Helton catheter inserted systemic antibiotics on board abdomen prepped with Betadine scrub solution properly draped timeout was had patient identified this point we made an incision elliptically around the 2 areas that it has been spontaneously draining we took it through subcutaneous tissue freed out from both lateral aspects of this elliptical incision to approximately 5 cm circumferentially freeing what turned out to be the hernial sac from the overlying skin we at this point entered the hernial sac and could easily appreciate the small bowel there was very little serous fluid at this time we then continue our excision of the of the elliptical incision and tissue down to the abdominal wall where we could identify a defect approximately 10 cm x 8 cm there was 1 adhesive band in the small bowel that we incised and removed small bowel was normal color there was no sign of any small bowel distention and no evidence of any incarceration in the hernial sac we at this point palpated underneath the defect could not identify any other defect extract the small 1 and 11 o'clock position. Using electrocautery we then freed up the subcutaneous tissue from the fascial layer circumferentially for approximately 5 cm to the point that we could outline the fascia outlined the defect the small hernia that was superior at the 11 o'clock position I closed it with interrupted [id number] x 2 of previous once we have completed this area and dissected out subcutaneous tissue from the abdominal wall we then proceeded with a compartment separation in size in both flanks anterior lateral to the rectus abdominis this freed it up substantially and actually a primary closure was without any tension we used the primary closure using a continuous fashion on #0 PDS having completed this we then elected to only a Vicryl mesh which was brought up on the field cut appropriately to suture to the lateral aspect of her relaxing incision for the compartment separation this was done using 2-0 Prolene starting 1 at 12 o'clock position and 1 at 6 o'clock position cutting the mesh appropriately so was it was tension-free the suture was in a running fashion having completed this there was no tension on the mesh we then freed the hernial sac circumferentially from the subcutaneous tissue bleeding along was controlled with electrocautery we were in a plane that was free of any scar tissue no residual mesh we at this point noted that the skin and subcutaneous tissue was quite lax on both area therefore circumferentially we took about 5 cm more of skin and subcutaneous tissue having completed this we then I used a 19 Larry drain stab wound to right lower quadrant position on top of the mesh the wound was then closed first with 2-0 Vicryl's taken interrupted bites of the subcutaneous tissue trying to adhere to the mesh and multiple layers of interrupted Vicryl freed from that depth all the way to the subcutaneous tissue that we had very little tension on the closure of the subcu there were 2 dogears 1 superiorly inferiorly on the incision that we excised and closed the incision with elliott cotton swab was placed in the umbilical crater 4 x 4 gauze was used as dressing and abdominal binder will be the procedure was tolerated well by the patient estimated blood loss 150 cc Spoke with her Sister Isi at [phone] Surgeon Nicolás Smith MD, FACS Pack Master Hilda Estimated Blood Loss 100 Findings Consistent with Post-Op Diagnosis 8 x 10 cm abdominal wall defect Specimens Hernia sac subcutaneous tissue excised skin Drains 19 round Larry through a stab wound Indications Incisional hernia symptomatic with spontaneous drainage of serous fluid Description of Procedure merda I attest to the content of the Intraoperative Record and any orders documented therein. Any exceptions are noted below.
[2023-10-09] MEDS ORDERED: GLUCAGON FOR INJ 1 MG VIAL SQ PRN (11:53)
[2023-10-09] MEDS ORDERED: ACETAMINOPHEN 325 MG TAB PO PRN (11:53)
[2023-10-09] MEDS ORDERED: GLUCOSE 40% GEL 15 GM TUBE PO PRN (11:53)
[2023-10-09] MEDS ORDERED: MoRPHine SULFATE 4 MG/ML 1 ML CARP\\VIAL IV PRN (11:53)
[2023-10-09] MEDS ORDERED: oxyCODONE/ACETAMINOPHEN 5mg/325mg TAB PO PRN (11:53)
[2023-10-09] MEDS ORDERED: GLUCOSE 10 TAB/TUBE PO PRN (11:53)
[2023-10-09] MEDS ORDERED: PHARMACY GLYCEMIC MGMT CONSULT PRN (11:53)
[2023-10-09] MEDS ORDERED: CARBOHYDRATES FOR HYPOGLYCEMIA PO PRN (11:53)
[2023-10-09] MEDS ORDERED: DEXTROSE 50% 50 ML SYRINGE IV PRN (11:53)
[2023-10-09] MEDS ORDERED: MoRPHine SULFATE 2 MG/ML CARP IV PRN (11:53)
--- NOTE | 2023-10-09 11:58 | Anesthesiology Progress Note ---
Date of Service October 09, 2023 Anesthesia Post Procedure Vital Signs Vital Signs: Temp Pulse Pulse Resp BP Pulse Ox O2 Del Method 10/09/23 11:30 36.6 C 62 10 L 163/90 H 98 Room Air 10/09/23 11:20 36.6 C 66 19 170/92 H 97 Room Air 10/09/23 11:10 67 16 162/99 H 100 Room Air 10/09/23 11:00 63 12 154/82 H 100 Oxymask 10/09/23 10:50 67 15 143/76 H 100 Oxymask 10/09/23 10:40 59 L 13 127/63 97 Oxymask 10/09/23 10:34 36.5 C 64 14 128/79 99 Oxymask 10/09/23 06:29 36.7 C 71 20 169/92 H 97 Room Air O2 Flow Rate 10/09/23 11:30 10/09/23 11:20 10/09/23 11:10 10/09/23 11:00 2 10/09/23 10:50 3 10/09/23 10:40 3 10/09/23 10:34 5 10/09/23 06:29 Pain Intensity Medial Abdomen: Pain Intensity: 2 Transfer of Care Handoff Completed per policy Notes Mental Status: alert / awake / arousable Patient Amnestic to Procedure: Yes Nausea / Vomiting: adequately controlled Pain: adequately controlled Airway Patency, RR, SpO2: stable & adequate BP & HR: stable & adequate Hydration State: stable & adequate Anesthetic Complications: no major complications apparent
[2023-10-09] MEDS ORDERED: LANTUS PER UNIT CHARGE SC ONE (12:15)
[2023-10-09] MEDS: LACTATED RINGER'S 1,000 ML IV SCH (12:34)
[2023-10-09] MEDS: INSULIN ASPART PER UNIT CHARGE SC SCH ×3 (12:35→21:19)
--- NOTE | 2023-10-09 12:43 | Pharmacy Report ---
Pharmacy Glycemic Short Note 2 - Date of Service October 09, 2023 - Glycemic Short BSG Results (Last 24 hours): 10/09/23 10/09/23 10/09/23 06:22 10:35 12:26 POC Glucose 139 H 134 H 130 H OUTPATIENT ANTIDIABETIC REGIMEN: * Jardiance 25 mg PO daily HbA1c: 6.1% (07/08/23) ASSESSMENT: * ST is a 63 year old female POD #0 s/p open repair of incarcerated incisional hernia * Received 4 mg IV dexamethasone in OR, no ongoing steroids ordered * T2DM diet ordered postoperatively * Will utilize ~0.1 unit/kg basal and weight-based stress of 2.5 to cover steroids PLAN FOR INPATIENT GLYCEMIC CONTROL: * Hold outpatient oral diabetes medications * Basal insulin * Lantus 10 units SQ x 1 * Bolus insulin * NovoLog per scale ACHS or Q6hrs while NPO * Goal Range: Low 110 mg/dL - High 140 mg/dL * Correction Factor: 20 mg/dL/unit * Nutritional / Prandial insulin per carb ratio of 1 unit per 7 grams CHO consumed
[2023-10-09] MEDS: oxyCODONE/ACETAMINOPHEN 5mg/325mg TAB PO PRN ×2 (15:59→23:34)
[2023-10-09] MEDS: ceFAZolin 2000MG 2,000 MG/15 ML SYR IV SCH ×2 (16:01→23:34)
[2023-10-09] MEDS: FAMOTIDINE 20 MG TAB PO SCH (19:46)
[2023-10-09] MEDS ORDERED: LOSARTAN POTASSIUM 50 MG TAB PO SCH (21:00)
[2023-10-09] MEDS ORDERED: SIMVASTATIN 20 MG TAB PO SCH (21:00)
[2023-10-10] MEDS ORDERED: HEPARIN 100 UNIT/ML 5ML FLUSH FLUSH PRN (03:43)
[2023-10-10] MEDS: LACTATED RINGER'S 1,000 ML IV SCH (04:43)
--- NOTE | 2023-10-10 06:08 | Surgery Progress Note ---
Date of Service October 10, 2023 Assessment & Plan (1) Ventral hernia: Plan: Status post herniorrhaphy on 10/09/2022 (postop day #1) Continue analgesics Continue antiemetics Continue diet as tolerated Continue CONNIE drain to bulb suction Encourage use of incentive spirometer Increase activity as able Check a.m. labs and available Consider discharge home later today if she continues to progress well Admission and Anticipated Discharge Date Admission Date: October 09, 2023 Supervising Physician Co-Signing Physician Notes Patient seen examined, labs reviewed, agree with above. POD #1 ventral hernia repair with component separation. Tolerated diet, pain controlled. On exam afebrile stable vitals. Incision without infection. CONNIE serosanguineous. Labs normal. Plan to discharge to home with follow-up with Dr. Marin Stone in the clinic. Wound care instructions, activity restrictions, and return precautions given, call with questions or concerns Subjective Patient is resting comfortably in bed. Patient notes that she had solid food since her surgery which she tolerated without nausea or vomiting or worsening abdominal pain. She has passed a small amount of flatus but has not had a bowel movement since surgery. Patient says that she has been out of bed and denies any lightheadedness or dizziness. Physical Exam Gastrointestinal (Abdomen): Abdomen is minimally distended. Bowel sounds are present. Incision is clean, dry, and intact. Larry drain is in place draining serosanguineous fluid and is drained approximately 81 cc since her surgery. Patient has minor tenderness near her surgical incision. Results & Data Vital Signs (Past 12 Hours) Vital Signs Temp Pulse Resp BP Pulse Ox O2 Del Method 10/10/23 03:38 36.5 C 75 16 130/70 94 Room Air 10/09/23 23:00 36.7 C 67 16 113/70 95 Room Air 10/09/23 19:28 36.9 C 71 16 136/74 93 Room Air PG Care Time/CCT Total # of Minutes Spent Total Time Spent with Patient: Total time spent is greater than 50% in coordination of care (as documented) at patient's floor/unit and/or counseling patient: Coding Level of Care Code 48146 Post Operative Follow-Up Diagnoses Ventral hernia K43.9 Obstruction and gangrene presence: without obstruction or gangrene (1) Ventral hernia Obstruction and gangrene presence: without obstruction or gangrene Qualified Code(s): K43.9 - Ventral hernia without obstruction or gangrene
[2023-10-10 06:19] LABS: Calcium 9.1 mg/dl (8.6-10.3); Potassium 4.1 mmol/L (3.5-5.1)
[2023-10-10 06:24] LABS: BUN Creatinine Ratio 16.6 (10-20); Creatinine Clr Calc Pharmacy 41.5 ml/min; Est GFR (African American) 40.8 ml/min; Est GFR (Non-African American) 35.2 ml/min
[2023-10-10] MEDS ORDERED: LEVOTHYROXINE SODIUM 75 MCG TABLET PO SCH (06:30)
[2023-10-10 06:45] LABS: Basophils # (auto) 0.03 K/uL (0.00-0.20); Basophils % (auto) 0.3 %; Eosinophils # (auto) 0.42 K/uL (0.00-0.50); Eosinophils % (auto) 3.8 %; Hematocrit (blood only) 34.4 % (37.0-47.0); Hemoglobin 11.4 g/dl (12.0-16.0); Immature Granulocytes # (auto) 0.07 K/uL (0.01-0.20); Immature Granulocytes % (auto) 0.6 %; Lymphocytes % (auto) 3.6 %; Mean Corpuscular Hemoglobin 31.1 pg (25.0-34.0); Mean Corpuscular Hgb Conc 33.1 g/dL (32.0-36.0); Mean Corpuscular Volume 93.7 fL (80.0-100.0); Mean Platelet Volume 12.4 fL (9.4-12.4); Monocytes # (auto) 0.68 K/uL (0.11-0.59); Monocytes % (auto) 6.1 %; Neutrophils # (auto) 9.56 K/uL (1.40-6.50); Neutrophils % (auto) 85.6 %; Platelet Count 70 K/uL (130-400); RDW Coefficient of Variation 14.2 % (11.5-14.5); Red Blood Count 3.67 M/uL (4.20-5.40); White Blood Count 11.16 K/ul (4.8-10.8)
[2023-10-10] MEDS: FAMOTIDINE 20 MG TAB PO SCH (08:40)
[2023-10-10] MEDS: ceFAZolin 2000MG 2,000 MG/15 ML SYR IV SCH (08:41)
[2023-10-10] MEDS: INSULIN ASPART PER UNIT CHARGE SC SCH ×2 (08:49→12:09)
[2023-10-10] MEDS ORDERED: METOPROLOL SUCC 50MG EXT REL TAB PO SCH (09:00)
--- NOTE | 2023-10-11 20:13 | Discharge Summary ---
Date of Service October 10, 2023 Discharge Data Procedures Performed Operation Date: 10/09/23 07:30 Actual Procedures p Open Repair of an Incarcerated Incisional Hernia with Compartment Seperation, with Vicryl Mesh [place](Not Applicable) - Nicolás Smith MD, [facility] Hospital Course (1) Ventral hernia: Date of admission: 10/09/2023 Date of discharge: 10/10/2023 This is a 63-year-old female who was brought into the hospital on 10/09/[address] Marin Stone. On date of admission Dr. Marin Naik performed a open repair of an incarcerated incisional hernia. The patient was kept in the hospital overnight. During her hospitalization she had uneventful hospital stay where she tolerated a diet. On postop day her pain was well-controlled and was felt that she was stable for discharge home. She was instructed on appropriate wound care, diet, and activity. She was instructed to follow-up with Dr. Smith in clinic in approximate 1 to 2 weeks. Coding Level of Care Code None Diagnoses Ventral hernia K43.9 Obstruction and gangrene presence: without obstruction or gangrene
== END 2023-10-10 14:11 | disposition home or self-care (01) ==
LOC: 3E 05:57 → ASU 05:57

== ENCOUNTER 2024-02-06 12:16 | Observation (INO) ==
--- NOTE | 2024-02-05 14:55 | Anesthesiology Consultation ---
Date of Service February 05, 2024 Assessment & Plan (1) Encounter for pre-operative examination: Plan - check BSG and EKG STAT am DOS. 09/2022 PAT note: "Per Luis Fernando at blood bank, pt has history of use of irradiated blood products in 2011. Unclear reason why (? immunocompromised status at that time). He states it is up to provider to decide irradiated vs non-irradiated blood products use if needed for upcoming surgery (to consider parameters for compromised vs non- compromised. Can consult hematology if further advised needed). Reviewed with Dr. Paez. Nothing further from his perspective. " Surgeon's office notified, advised nothing additional is needed. - Per curriculum and assessment director on 02/05/24: No known infectious disease contacts, current infectious disease symptoms in past 10 days or COVID positive test result in the past 30 days. Chart Review Chart Review: Acceptable Risk for Surgery and Patient NOT seen in Pre Admission Testing History Surgery Operation Date: 02/06/24 13:50 Proposed Procedures p Incision and Drainage Abdominal Wall Abscess, Possible Wound Vac System - Nicolás Smith MD, FACS Height/Weight Height: 5 ft 4 in Weight: 93 kg Allergies Allergy/AdvReac Type Severity Reaction Status Date / Time Penicillins Allergy Unknown Rash Verified 02/05/24 13:30 Medications Home Medications Medication Instructions Recorded Confirmed Last Taken famotidine 20 mg tablet (Pepcid) 20 mg PO BID 06/10/20 02/05/24 10/09/23 05:00 multivitamin 1 tab PO QAM 01/10/21 02/05/24 10/08/23 08:00 cholecalciferol (vitamin D3) 50 50 mcg PO QAM 07/19/21 02/05/24 10/08/23 08:00 mcg (2,000 unit) capsule cyanocobalamin (vitamin B-12) 1,000 mcg PO QAM 12/15/21 02/05/24 10/09/23 05:00 1,000 mcg capsule vitamin B complex 1 tab PO HS 02/20/22 02/05/24 10/08/23 22:00 losartan 100 mg tablet 100 mg PO HS #90 tabs 04/09/23 02/05/24 10/08/23 22:00 simvastatin 20 mg tablet (Zocor) 20 mg PO HS #90 tabs 07/01/23 02/05/2423 22:00 metoprolol succinate 50 mg 50 mg PO QAM 09/17/23 02/05/24 10/09/23 05:00 tablet,extended release 24 hr ciprofloxacin HCl 250 mg tablet 250 mg PO BID #20 tabs 01/27/24 02/05/24 Unknown (Cipro) empagliflozin 25 mg tablet 25 mg PO QAM 02/05/24 02/05/24 Unknown (Jardiance) hydrochlorothiazide 12.5 mg tablet 12.5 mg PO QAM 02/05/24 02/05/24 Unknown levothyroxine 75 mcg tablet 75 mcg PO QAM 02/05/24 02/05/24 Unknown (Synthroid) Past Medical History Medical History 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 Follows with Dr. Clarke. Esophageal varices grade II with PHG per hepatology note 11/2023 History of Clostridioides difficile infection 2012 History of colon cancer 2008, lung mets resected History of endometrial cancer s/p hysterectomy 2021 Hyperlipidemia Hypertension Hypothyroidism Left knee DJD Metabolic syndrome Mixed hyperlipidemia Right knee DJD Stage 3 chronic kidney disease Follows with [facility]. Type 2 diabetes mellitus Vitamin D deficiency Past Family History Family History Mother Diabetes Heart disease Hypertension Father Heart disease Hypothyroidism Diabetes Hypertension Sister Hypertension Hypothyroidism Brother Hypertension Diabetes Grandmother (Maternal) Breast cancer Cancer Aunt Cancer Uncle Cancer Past Surgical History Surgical History H/O colonoscopy H/O partial resection of colon for colon cancer History of D&C D&C (09/24/22): LMA#4 at [facility]. No issues noted per post-op anesthesia progress note. History of esophagogastroduodenoscopy (EGD) History of incisional hernia repair (10/09/23) Open Repair of an Incarcerated Incisional Hernia with Compartment Seperation, with Vicryl Mesh [place](Not Applicable) - Nicolás Smith MD, FACS History of lung surgery VATS for colon cancer metastasis 2008, 2009, 2012 History of total abdominal hysterectomy and bilateral salpingo-oophorectomy (10/2022) Hx of section Social History Smoking Status: Never smoker Do You Dip or Chew Tobacco: No Hx Alcohol Use: Yes Alcohol type: wine alcohol intake frequency: holidays/special occasions only Hx Substance Use: No substance use type: does not use Lab Results Anesthesia Preop Results Results Anesthesia Widget: WBC 7.98 K/ul (4.8-10.8) 01/14/24 Hgb 11.0 g/dl (12.0-16.0) L 01/14/24 Hct 34.6 % (37.0-47.0) L 01/14/24 Plt 98 K/uL (130-400) L 01/14/24 Na 137 mmol/L (136-145) 01/14/24 K 4.2 mmol/L (3.5-5.1) 01/14/24 Cl 106 mmol/L (98-107) 01/14/24 CO2 23 mmol/L (21-32) 01/14/24 BUN 35 mg/dl (6-23) H 01/14/24 Creat 1.56 mg/dl (0.6-1.2) H 01/14/24 Glucose Level 122 mg/dl (70-99(Fasting)) H 01/14/24 PT 11.5 Seconds (9.0-12.0) 12/12/23 INR 1.1 (0.9-1.1) 12/12/23 TSH 0.266 uIu/ml (0.300-4.500) L 12/12/23 Testing Echocardiogram Date: 04/19/23 EF 55-60% Grade I diastolic dysfunction Normal LV wall motion Mild mitral regurgitation Mild cLVH Other Testing Abdomen US 12/12/23 1. Cirrhosis without ascites. 2. Cholelithiasis without acute cholecystitis. 3. No biliary ductal dilation. Abdomen pelvis CT 10/06/23 1. Interval increase in size in the large midline ventral/umbilical hernia. This contains multiple nondilated loops of small bowel and a small amount of fluid. 2. No bowel wall thickening or obstruction. 3. Stable splenomegaly. 4. Cholelithiasis. 5. Trace bilateral pleural effusions again noted. 6. Status post hysterectomy. The soft tissue thickening/enhancement along the left side of the vaginal cuff has slightly improved. An additional 6 month abdomen and pelvis CT follow-up recommended to ensure stability/resolution. 7. Additional findings as described above. Carotid doppler 6/2/23 < 50% stenosis ICAs bilat Chest CT 04/03/23 1. There is no evidence of intrathoracic metastatic disease. 2. Postsurgical change is again seen at both lung bases. 3. Small left and trace right pleural effusions. 4. Cardiomegaly. 5. Cirrhotic liver morphology, cholelithiasis, and marked splenomegaly are seen in the upper abdomen. 6. Additional findings as above.
[2024-02-06] MEDS: LR 15ML/HR IV SCH (13:04)
[2024-02-06] MEDS ORDERED: PROMETHAZINE HCL 6.25 MG in SODIUM CHLORIDE 0.9% 50 ML IV PRN (13:21)
[2024-02-06] MEDS ORDERED: fentaNYL citrate PF 100 MCG/2 ML VIAL IV PRN (13:21)
[2024-02-06] MEDS ORDERED: ATROPINE SULFATE 0.1 MG/ML 10ML SYR IV PRN (13:21)
[2024-02-06] MEDS ORDERED: ONDANSETRON INJ 2 MG/ML 2 ML VIAL IV PRN ×2 (13:21→16:17)
[2024-02-06] MEDS ORDERED: ePHEDrine sulfate 50 MG/ML AMP IV PRN (13:21)
[2024-02-06] MEDS ORDERED: HYDROmorphone INJ 1 MG/ML SYRINGE IV PRN (13:21)
--- NOTE | 2024-02-06 14:07 | History & Physical Bridge Note ---
Date of Service February 06, 2024 History & Physical Bridge Note I have examined the patient, reviewed the History & Physical and in the interval since the performance of the History & Physical I have noted the following changes of clinical significance: no changes noted pt marked all question answered
[2024-02-06] MEDS ORDERED: fentaNYL citrate PF 100 MCG/2 ML VIAL ONE (14:16)
[2024-02-06] MEDS ORDERED: MIDAZOLAM HCL 1 MG/ML 2ML VIAL ONE (14:16)
[2024-02-06] MEDS ORDERED: DEXAMETHASONE SOD INJ 4 MG/ML VIAL ONE (14:44)
[2024-02-06] MEDS ORDERED: PROPOFOL IV EMULSION 10 MG/ML 20 ML VIAL IV ONE (14:44)
[2024-02-06] MEDS ORDERED: ROCURONIUM BROMIDE 10 MG/ML 5 ML VIAL IV ONE (14:44)
[2024-02-06] MEDS ORDERED: LIDOCAINE 2% 2 ML VIAL/AMP(20MG/ML) INFIL ONE (14:44)
[2024-02-06] MEDS ORDERED: ONDANSETRON INJ 2 MG/ML 2 ML VIAL ONE (14:44)
[2024-02-06] MEDS ORDERED: SUGAMMADEX SODIUM 200 MG/2 ML VIAL IV ONE (14:52)
--- NOTE | 2024-02-06 14:52 | Post Operative Brief Note ---
Immediate Post Op Note v1 Date of Surgery February 06, 2024 Pre & Post Diagnosis Operation Date: 02/06/24 13:50 <No data on this case meets the specified criteria> I identified the patient and participated in the time-out.: Yes Procedure Operation Date: 02/06/24 13:50 <No data on this case meets the specified criteria> Surgeon Nicolás Smith MD, FACS Radiologist Diagnostic berenice wyatt Estimated Blood Loss 5 Findings Consistent with Post-Op Diagnosis
[2024-02-06] MEDS: BUPIVACAINE 0.5 % 5 MG/1 ML MPF 30ML VIAL ONE (14:57)
--- NOTE | 2024-02-06 15:14 | Operative Report ---
PG Post Operative Report Pre & Post Diagnosis Operation Date: 02/06/24 13:50 Pre-Op Diagnosis: Abscess abdominal wall Post-Op Diagnosis: Abscess abdominal wall I identified the patient and participated in the time-out.: Yes Procedure Operation Date: 02/06/24 13:50 Actual Procedures p Incision and Drainage Abdominal Wall Abscess and debridement of the (Not Applicable) - Nicolás Smith MD, FACS The patient was brought into the operating theater general endotracheal anesthesia the abdomen was prepped Betadine solution and properly draped sharlene marcelo was had the patient was identified this point the patient had a 1 cm opening in the distal aspect of a lower midline incision that we were packing in the office since it opened up approximately a week ago the Q-tip pretty much extended in the pocket which is about 10 cm from the skin edge at this point we enlarged from that opening towards the umbilical area moderate amount abdominal wall edema was appreciated she had a panniculus and she is also had a history of cirrhosis could attributed to the excess fluid using the electrocautery from the skin edge to the abscess cavity it extended approximately 5 cm x 10 mm down we were able to identify some remnants of a chronic abscess some fibrous tissue which we debrided there was no odor appreciated electrocautery was used to open up the subcutaneous tissue onto the abdominal wall abscess the bottom of the abscess cavity which was the abdominal wall was intact there was no evidence of any bowel in fact when initial opening we had used a Vicryl mesh to oversew of a compartment separation when we repaired the incisional hernia at the 3 o'clock position there was a remnant of the present Prolene sutures that I removed and this most likely was used to suture in the back roll mesh peripherally there was 2 pockets of area look like recent hematoma about 1 or 2 cm in size both in the most distal aspect of the bottom of the skin abscess and 1 in 9 o'clock position these were unroofed and appeared to be old blood clots the area was then irrigated and I elected at this point just to pack the area and consider placing a VAC system tomorrow when we were done the abscess cavity itself was 6/cm x 6 cm x 6 cm from the skin edge to the abdominal wall transversely and axial The procedure was tolerated well by the patient estimated blood loss 5 cc Addendum Adrianne Rehman physician insurance assistant helped the retraction exposure wound closure I spoke with her mother and sister Isi in the waiting area Jayme was used for this dictation Surgeon Nicolás Smith MD, FACS Community [facility] Nursing Director berenice wyatt Estimated Blood Loss 5 Findings Consistent with Post-Op Diagnosis Abscess cavity 6 cm x 6 cm x 6 cm Specimens None Description of Procedure merda I attest to the content of the Intraoperative Record and any orders documented therein. Any exceptions are noted below.
--- NOTE | 2024-02-06 16:12 | Anesthesiology Progress Note ---
Date of Service February 06, 2024 Anesthesia Post Procedure Vital Signs Vital Signs: Temp Pulse Pulse Resp BP BP Pulse Ox 02/06/24 15:30 97.5 F L 66 15 133/65 98 02/06/24 15:20 64 17 109/51 L 99 02/06/24 15:10 65 22 125/64 99 02/06/24 15:01 97.0 F L 74 17 130/66 96 02/06/24 13:12 97.9 F 81 20 185/61 H 96 O2 Del Method O2 Flow Rate 02/06/24 15:30 Room Air 02/06/24 15:20 Room Air 02/06/24 15:10 Oxymask 4 02/06/24 15:01 Room Air 02/06/24 13:12 Room Air Transfer of Care Handoff Completed per policy Notes Mental Status: alert / awake / arousable and participated in evaluation Patient Amnestic to Procedure: Yes Nausea / Vomiting: adequately controlled Pain: adequately controlled Airway Patency, RR, SpO2: stable & adequate BP & HR: stable & adequate Hydration State: stable & adequate Anesthetic Complications: no major complications apparent and Pt Satisfied with anesthetic care
[2024-02-06] MEDS ORDERED: oxyCODONE HCL IR 5 MG TAB (IMMEDIATE RELEASE) PO PRN (16:17)
--- NOTE | 2024-02-06 16:49 | Anesthesiology Progress Note ---
Date of Service February 06, 2024 Anesthesia Post Procedure Vital Signs Vital Signs: Temp Pulse Pulse Resp BP BP Pulse Ox 02/06/24 16:44 52 L 18 148/76 H 100 02/06/24 16:13 55 L 16 147/84 H 100 02/06/24 15:30 36.4 C L 66 15 133/65 98 02/06/24 15:20 64 17 109/51 L 99 02/06/24 15:10 65 22 125/64 99 02/06/24 15:01 36.1 C L 74 17 130/66 96 02/06/24 13:12 36.6 C 81 20 185/61 H 96 O2 Del Method O2 Flow Rate 02/06/24 16:44 Room Air 02/06/24 16:13 Room Air 02/06/24 15:30 Room Air 02/06/24 15:20 Room Air 02/06/24 15:10 Oxymask 4 02/06/24 15:01 Room Air 02/06/24 13:12 Room Air Transfer of Care Handoff Completed per policy Notes Mental Status: alert / awake / arousable and participated in evaluation Patient Amnestic to Procedure: Yes Nausea / Vomiting: adequately controlled Pain: adequately controlled Airway Patency, RR, SpO2: stable & adequate BP & HR: stable & adequate Hydration State: stable & adequate Anesthetic Complications: no major complications apparent and Pt Satisfied with anesthetic care
[2024-02-06] MEDS: FAMOTIDINE 20 MG TAB PO SCH (20:37)
[2024-02-06] MEDS: SIMVASTATIN 20 MG TAB PO SCH (20:37)
[2024-02-06] MEDS: LOSARTAN POTASSIUM 50 MG TAB PO SCH (20:38)
--- NOTE | 2024-02-07 08:22 | Surgery Progress Note ---
Date of Service February 07, 2024 Assessment & Plan (1) Status post incision and drainage: Plan: POD 1 doing well VSS waiting for wound vac placement pt to f/u with wound care next week seen and examined with Dr. Smith Admission and Anticipated Discharge Date Admission Date: February 06, 2024 Subjective pt reports pain controlled denies f/c , n/v , sob, cp Review of Systems Constitutional: no fever and no chills Respiratory: no dyspnea Cardiovascular: no chest pain Gastrointestinal: + abdominal pain (controlled ); no nause a and no vomiting Musculoskeletal: no muscle weakness Physical Exam Physical Exam: alert oriented Constitutional: cooperative and comfortable; no acute distress Respiratory: normal respiratory effort and able to speak in complete sentences; no respiratory distress Cardiovascular: Rate/Rhythm: regular rate Gastrointestinal (Abdomen): Inspection/Auscultation: + abdominal surgical incision (CDI , with packing ) Musculoskeletal: no cyanosis or clubbing, extremities motor strength 5/5 Psychiatric: A+Ox3, euthymic affect Results & Data Vital Signs (Past 12 Hours) Vital Signs Temp Pulse Resp BP BP Pulse Ox O2 Del Method 02/07/24 03:33 97.7 F 62 16 104/55 L 94 Room Air 02/06/24 23:27 97.9 F 69 18 139/72 175/74 H 98 Room Air PG Care Time/CCT Total # of Minutes Spent Total Time Spent with Patient: Total time spent is greater than 50% in coordination of care (as documented) at patient's floor/unit and/or counseling patient: Coding Level of Care Code 12145 Post Operative Follow-Up Diagnoses Status post incision and drainage Z98.890
[2024-02-07] MEDS: METOPROLOL SUCC 50MG EXT REL TAB PO SCH (08:43)
[2024-02-07] MEDS: LEVOTHYROXINE SODIUM 75 MCG TABLET PO SCH (08:44)
[2024-02-07] MEDS: hydroCHLOROthiazide 25 MG TAB PO SCH (08:44)
[2024-02-07] MEDS: ACETAMINOPHEN 325 MG TAB PO PRN (08:47)
--- NOTE | 2024-02-07 12:00 | Electrocardiogram Report ---
Test Reason : Blood Pressure : / mmHG Vent. Rate : 057 BPM Atrial Rate : 057 BPM P-R Int : 148 ms QRS Dur : 086 ms QT Int : 456 ms P-R-T Axes : 023 -04 061 degrees QTc Int : 443 ms Sinus bradycardia Otherwise normal ECG When compared with ECG of 12-SEP-2022 10:28, QT has lengthened Confirmed by Arnel Rosas ([id number]) on 02/07/2024 11:59:50 AM Referred By: Nicolás Smith Confirmed By:Bert Rosas
== END 2024-02-07 15:46 | disposition home health service (06) ==
LOC: 3E 12:16 → ASU 12:16